=== PATIENT | male | born 1970 | race Caucasian/White ===

== ENCOUNTER 2018-10-24 06:03 | Emergency (ER) | payer BC ==
[2018-10-24] MEDS ORDERED: KETOROLAC 30 MG/ML INJ ONE (06:21)
[2018-10-24] MEDS ORDERED: NA CHLORIDE 0.9% 1,000 ML ONE (06:21)
[2018-10-24 06:35] LABS: Absolute Lymphocytes (CBC) 1.6 K/uL (0.7-4.9); Absolute Monocytes 0.6 K/uL (0.1-1.3); Basophils % 0.4 % (0-1.3); Eosinophils % 3.3 % (0-4.4); Hematocrit 46.1 % (39.6-49.0); Lymphocytes % 24.5 % (15.3-44.8); MPV 8.9 fL (7.6-11.3); Monocytes % 8.9 % (3.3-12.3); RBC Red Blood Cell Count 4.81 M/uL (4.33-5.43)
[2018-10-24 06:36] LABS: Urine Amorphous Sediment 3+ /HPF (NONE SEEN); Urine Bacteria 20-50 /HPF (NONE SEEN); Urine Culture Reflex Order REFLEXED; Urine Mucus 2+ /HPF (NONE SEEN); Urine RBC <5 /HPF (NONE SEEN)
[2018-10-24 06:36] LABS: Urine Blood NEGATIVE (NEG); Urine Glucose NEGATIVE (NEG); Urine Protein TRACE (NEG)
[2018-10-24 06:47] LABS: Albumin 3.8 g/dL (3.4-5.0); Bilirubin Direct 0.1 mg/dL (0-0.2); Bilirubin Total 0.5 mg/dL (0.2-1.0); Potassium 3.7 mmol/L (3.5-5.1); Protein, Total 6.9 g/dL (6.4-8.2)
[2018-10-24] MEDS ORDERED: MORPHINE 4 MG/ML SYR ONE (07:32)
[2018-10-24] MEDS ORDERED: ONDANSETRON 4 MG/2 ML VIAL ONE (07:33)
--- NOTE | 2018-10-24 07:42 | EDPHYS ---
Physician Documentation [facility] Name: Edson Yang Age: 48 yrs Sex: Male : 1970 Arrival Date: 10/24/2018 Time: 06:05 Bed 6 Private MD: ED Physician Tam Abad HPI: 10/24 06:13 This 48 yrs old Male presents to ER via EMS with complaints of Back Pain, Abd gs Pain > 50 y/o. 06:13 The patient complains of pain in the right low back. The pain radiates to the right gs lower quadrant. Onset: The symptoms/episode began/occurred acutely, this morning. Modifying factors: The symptoms are alleviated by nothing. the symptoms are aggravated by nothing. Associated signs and symptoms: Pertinent negatives: diarrhea, fever, pain radiating to the lower extremities. Severity of pain: At its worst the pain was severe in the emergency department the pain is unchanged. The patient has experienced similar episodes in the past, a few times. The patient has not recently seen a physician. Historical: - Allergies: 06:14 No Known Allergies; ea - Home Meds: 06:14 Glipizide Oral [Active]; atorvastatin oral oral [Active]; Metformin Oral [Active]; ea - PMHx: 06:14 Diabetes - IDDM; Kidney stones; ea - PSHx: 06:14 hand surgery; ea - Immunization history:: Adult Immunizations up to date. - Social history:: Smoking status: Patient/guardian denies using tobacco. - Ebola Screening: : No symptoms or risks identified at this time. ROS: 06:13 All other systems are negative. gs Exam: 06:13 Head/Face: Normocephalic, atraumatic. Eyes: Pupils equal round and reactive to light, gs extra-ocular motions intact. Lids and lashes normal. Conjunctiva and sclera are non-icteric and not injected. Cornea within normal limits. Periorbital areas with no swelling, redness, or edema. 06:13 ENT: Nares patent. No nasal discharge, no septal abnormalities noted. Tympanic membranes are normal and external auditory canals are clear. Oropharynx with no redness, swelling, or masses, exudates, or evidence of obstruction, uvula midline. Mucous membranes moist. Neck: Trachea midline, no thyromegaly or masses palpated, and no cervical lymphadenopathy. Supple, full range of motion without nuchal rigidity, or vertebral point tenderness. No Meningismus. Chest/axilla: Normal chest wall appearance and motion. Nontender with no deformity. No lesions are appreciated. Cardiovascular: Regular rate and rhythm with a normal S1 and S2. No gallops, murmurs, or rubs. Normal PMI, no JVD. No pulse deficits. Respiratory: Lungs have equal breath sounds bilaterally, clear to auscultation and percussion. No rales, rhonchi or wheezes noted. No increased work of breathing, no retractions or nasal flaring. Back: No spinal tenderness. No costovertebral tenderness. Full range of motion. Skin: Warm, dry with normal turgor. Normal color with no rashes, no lesions, and no evidence of cellulitis. MS/ Extremity: Pulses equal, no cyanosis. Neurovascular intact. Full, normal range of motion. Neuro: Awake and alert, GCS 15, oriented to person, place, time, and situation. Cranial nerves II-XII grossly intact. Motor strength 5/5 in all extremities. Sensory grossly intact. Cerebellar exam normal. Normal gait. 06:13 Constitutional: The patient appears alert, awake. 06:13 Constitutional: The patient appears uncomfortable. 06:13 Abdomen/GI: Palpation: moderate abdominal tenderness, in the right lower quadrant. Vital Signs: 06:00 BP 123 / 82; Pulse 63; Resp 18; Temp 98.3; Pulse Ox 100% on R/A; Weight 68.04 kg; ea Height 5 ft. 5 in. (165.10 cm); Pain 10/10; 07:37 BP 124 / 64; Pulse 60; Resp 16; Pulse Ox 100% on R/A; Pain 6/10; iw 06:00 Body Mass Index 24.96 (68.04 kg, 165.10 cm) ea MDM: 06:11 Patient medically screened. 06:13 Differential diagnosis: nephrolithiasis, pyelonephritis, UTI, pancreatitis. Data reviewed: vital signs, nurses notes. Response to treatment: the patient's symptoms have markedly improved after treatment. 10/24 06:09 Order name: Basic Metabolic Panel; Complete Time: 07:16 gs 10/24 07:29 Interpretation: Normal except: CL 109; GLUC 118; GFR 79. cp 10/24 06:09 Order name: CBC with Diff; Complete Time: 07:16 gs 10/24 07:29 Interpretation: Normal except: RDW 17.3. cp 10/24 06:09 Order name: Hepatic Function; Complete Time: 07:16 gs 10/24 06:09 Order name: Lipase; Complete Time: 07:16 gs 10/24 06:09 Order name: Urine Microscopic Only; Complete Time: 07:16 gs 10/24 07:30 Interpretation: Normal except: UBACT 20-50; SQEPI 5-10; AMORPH 3+. cp 10/24 06:20 Order name: Urine Dipstick--Ancillary (enter results); Complete Time: 07:16 mw2 10/24 06:09 Order name: IV Saline Lock; Complete Time: 06:19 gs 10/24 06:09 Order name: CT Stone Protocol 10/24 06:38 Order name: Urine Culture EDCT 10/24 06:09 Order name: Labs collected and sent; Complete Time: 06:19 gs 10/24 06:09 Order name: Urine Dipstick-Ancillary (obtain specimen); Complete Time: 06:18 gs Administered Medications: 06:20 Drug: NS 0.9% 1000 ml Route: IV; Rate: 1 bolus; Site: right forearm; rr5 06:20 Drug: TORadol 30 mg Route: IVP; Site: right forearm; rr5 07:31 Drug: morphine 4 mg Route: IVP; Site: right antecubital; iw 07:32 Drug: Zofran 4 mg Route: IVP; Site: right antecubital; iw 08:31 Drug: Flexeril 10 mg Route: PO; iw Disposition: 09:00 Chart complete. cp Disposition: 10/24/18 07:41 Discharged to Home. Impression: Low back pain. - Condition is Stable. - Discharge Instructions: Back Pain, Adult, Back Exercises, [id number]. - Prescriptions for Cipro 500 mg Oral Tablet - take 1 tablet by ORAL route every 12 hours for 7 days; 14 tablet. Cyclobenzaprine 10 mg Oral Tablet - take 1 tablet by ORAL route every 8 hours As needed no driving while taking medication; 20 tablet. Tramadol 50 mg Oral Tablet - take 1 tablet by ORAL route every 8 hours as needed. no driving while taking medication; 15 tablet. Ibuprofen 800 mg Oral Tablet - take 1 tablet by ORAL route every 8 hours As needed take with food; 30 tablet. - Work release form, Medication Reconciliation Form, Thank You Letter, Antibiotic Education, Prescription Opioid Use form. - Follow up: Private Physician; When: 2 - 3 days; Reason: Recheck today's complaints. - Problem is new. - Symptoms have improved. Signatures: Dispatcher [employer] Tonia Castro RN RN Armando Winter PA PA cp Antunez, Elena, RN RN ea Starr, Gregory, MD MD gs Roque, Raymond, RN RN rr5 Corrections: (The following items were deleted from the chart) 08:41 07:41 10/24/2018 07:41 Discharged to Home. Impression: Low back pain. Condition is iw Stable. Forms are Medication Reconciliation Form, Thank You Letter, Antibiotic Education, Prescription Opioid Use. Follow up: Private Physician; When: 2 - 3 days; Reason: Recheck today's complaints. Problem is new. Symptoms have improved. cp
--- NOTE | 2018-10-24 07:42 | ER ---
Nurse's Notes [facility] Name: Edson Yang Age: 48 yrs Sex: Male : 1970 Arrival Date: 10/24/2018 Time: 06:05 Bed 6 Private MD: Diagnosis: Low back pain Presentation: 10/24 06:00 Presenting complaint: Patient states: Pt reports pain to lower back that radiates to ea right abdomen. Pt reports he has a history of kidney stones. Transition of care: patient was not received from another setting of care. Onset of symptoms was October 24, 2018. Risk Assessment: Do you want to hurt yourself or someone else? Patient reports no desire to harm self or others. Initial Sepsis Screen: Does the patient meet any 2 criteria? No. Patient's initial sepsis screen is negative. Does the patient have a suspected source of infection? No. Patient's initial sepsis screen is negative. Care prior to arrival: None. 06:00 Method Of Arrival: EMS: [facility] ea 06:00 Acuity: NIKKI 3 ea Triage Assessment: 06:00 General: Appears uncomfortable, Behavior is calm, cooperative, appropriate for age. ea Pain: Complains of pain in low back area and left low back right flank and right lower quadrant Quality of pain is described as sharp. Neuro: Level of Consciousness is awake, alert, obeys commands, Oriented to person, place, time. Cardiovascular: Patient's skin is warm and dry. Respiratory: Airway is patent Respiratory effort is even, unlabored, Respiratory pattern is regular, symmetrical. Derm: Skin is pink, warm \T\ dry. Musculoskeletal: Circulation, motion, and sensation intact. Historical: - Allergies: 06:14 No Known Allergies; ea - Home Meds: 06:14 Glipizide Oral [Active]; atorvastatin oral oral [Active]; Metformin Oral [Active]; ea - PMHx: 06:14 Diabetes - IDDM; Kidney stones; ea - PSHx: 06:14 hand surgery; ea - Immunization history:: Adult Immunizations up to date. - Social history:: Smoking status: Patient/guardian denies using tobacco. - Ebola Screening: : No symptoms or risks identified at this time. Screenin:12 Abuse screen: Denies threats or abuse. Nutritional screening: No deficits noted. ea Tuberculosis screening: No symptoms or risk factors identified. Fall Risk IV access (20 points). Assessment: 06:00 General: Appears in no apparent distress. uncomfortable, Behavior is calm, cooperative, rr5 appropriate for age. 06:00 Pain: Complains of pain in low back Pain radiates to right lower quadrant and left rr5 lower quadrant Pain currently is 6 out of 10 on a pain scale. Quality of pain is described as sharp, Pain began gradually, Is intermittent. Neuro: Level of Consciousness is awake, alert, obeys commands, Oriented to person, place, time, situation, Appropriate for age. Cardiovascular: Capillary refill < 3 seconds Patient's skin is warm and dry. Respiratory: Airway is patent Respiratory effort is even, unlabored, Respiratory pattern is regular, symmetrical. GI: Reports lower abdominal pain. GI: Reports low back pain. : Reports history of kidney stone having low back and lower quadrant pain. EENT: No signs and/or symptoms were reported regarding the EENT system. Derm: Skin is intact, Skin temperature is warm redness on the face and upper arms noted. Musculoskeletal: Circulation, motion, and sensation intact. Capillary refill < 3 seconds, Range of motion: intact in all extremities. 07:36 Reassessment: Patient appears in no apparent distress at this time. Patient and/or iw family updated on plan of care and expected duration. Pain level reassessed. Patient is alert, oriented x 3, equal unlabored respirations, skin warm/dry/pink. pt states pain 6/10, medicated with morphine and Zofran, VSS, family at bedside, awaiting CT results. Vital Signs: 06:00 BP 123 / 82; Pulse 63; Resp 18; Temp 98.3; Pulse Ox 100% on R/A; Weight 68.04 kg; ea Height 5 ft. 5 in. (165.10 cm); Pain 10/10; 07:37 BP 124 / 64; Pulse 60; Resp 16; Pulse Ox 100% on R/A; Pain 6/10; iw 06:00 Body Mass Index 24.96 (68.04 kg, 165.10 cm) ea ED Course: 06:00 Arm band placed on right wrist. Patient placed in an exam room, on a stretcher, on ea pulse oximetry. 06:00 Patient has correct armband on for positive identification. Bed in low position. Call ea light in reach. Side rails up X 1. 06:05 Patient arrived in ED. ea 06:10 Triage completed. ea 06:11 Tam Abad MD is Attending Physician. gs 06:18 Urine Microscopic Only Sent. jb5 06:18 Basic Metabolic Panel Sent. jb5 06:18 CT Stone Protocol Sent. jb5 06:18 CBC with Diff Sent. jb5 06:18 Hepatic Function Sent. jb5 06:18 Lipase Sent. jb5 06:18 Inserted saline lock: 20 gauge in right forearm, using aseptic technique. Blood rr5 collected. 06:[address] via wheelchair. kw1 06:35 CT Stone Protocol In Process Unspecified. EDMS 06:58 Tonia Maza, RN is Primary Nurse. iw 07:00 Armando Wilson PA is PHCP. cp 08:40 No provider procedures requiring assistance completed. IV discontinued, intact, iw bleeding controlled, No redness/swelling at site. Pressure dressing applied. Administered Medications: 06:20 Drug: NS 0.9% 1000 ml Route: IV; Rate: 1 bolus; Site: right forearm; rr5 06:20 Drug: TORadol 30 mg Route: IVP; Site: right forearm; rr5 07:31 Drug: morphine 4 mg Route: IVP; Site: right antecubital; iw 07:32 Drug: Zofran 4 mg Route: IVP; Site: right antecubital; iw 08:31 Drug: Flexeril 10 mg Route: PO; iw Outcome: 07:41 Discharge ordered by MD. cp 08:40 Discharged to home ambulatory, with family. iw 08:40 Condition: good 08:40 Discharge instructions given to patient, family, Instructed on discharge instructions, follow up and referral plans. medication usage, Demonstrated understanding of instructions, follow-up care, medications, Prescriptions given X 3. 08:41 Patient left the ED. iw Signatures: Dispatcher [employer] EDIA Tonia Maza RN RN iw Armando Wilson PA PA cp Ilana Baig jb5 Beth Samayoa RN RN ea Starr, Gregory, MD MD Ana Paula Ventura kw1 Gary Serrano RN RN rr5 Corrections: (The following items were deleted from the chart) 06:33 06:00 Pain: Complains of pain in low back Pain radiates to right lower quadrant and rr5 left lower quadrant Pain currently is 10 out of 10 on a pain scale. Quality of pain is described as sharp, Pain began gradually, Is intermittent, rr5
[2018-10-24] MEDS ORDERED: CYCLOBENZAPRINE 10 MG TAB ONE (08:36)
--- NOTE | 2018-10-24 15:39 | RAD REPORT ---
EXAM DESCRIPTION: CT Abdomen and Pelvis Without Intravenous Contrast. CLINICAL HISTORY: The patient is 48 years old and is Male; ABD PAIN. COMPARISON: No relevant prior studies available. TECHNIQUE: Axial computed tomography images of the abdomen and pelvis without intravenous contrast. Sagittal and coronal reformatted images were created and reviewed. This CT exam was performed using one or more o f the following dose reduction techniques: Automated exposure control, adjustment of the mA and/or kV according to patient size, and/or use of iterative reconstruction technique. FINDINGS: Lung bases: Unremarkable. No mass. No consolidation. ABDOMEN: Liver: Homogeneous without focal mass. Gallbladder and bile ducts: No calcified stones. No ductal dilation. Pancreas: Unremarkable. No ductal dilation. Spleen: Punctate splenic granuloma is present. Adrenals: Unremarkable. No mass. Kidneys and ureters: Right intrarenal calcifications are present. There is no hydronephrosis or hydro ureter of either kidney. No obstructing calculus is seen. Stomach and bowel: The stomach is massively distended. The small bowel is relatively normal in calibe r. A moderate amount of stool is present throughout the colon. There is minimal mucosal thickening or evidence of bowel obstruction. PELVIS: Appendix: The appendix is normal in caliber without surrounding inflammation. Bladder: Unremarkable. No stone. Reproductive: Unremarkable as visualized. ABDOMEN and PELVIS: Intraperitoneal space: Unremarkable. No free air. No significant fluid collection. Bones/joints: No acute fracture. Soft tissues: The soft tissues are normal. Vasculature: Atherosclerosis of the vasculature is present the vasculature is normal in caliber. No abdominal aortic aneurysm. Lymph nodes: Unremarkable. No enlarged lymph nodes. IMPRESSION: No acute findings on this noncontrasted CT of the abdomen and pelvis to explain the chan ent's symptoms. Electronically signed by: Joyce Palomino MD 10/24/2018 6:38 AM [employer] Due to temporary technical issues with the PACS/Fluency reporting system, reports are being signed by the in house radiologist as a courtesy to ensure prompt reporting. The interpreting radiologist is f artemly responsible for the content of the report.
== END 2018-10-24 08:41 | disposition home or self-care (01) ==
LOC: ER 06:03
DX: M54.5 Low back pain (principal); E11.9 Type 2 diabetes mellitus without complications; Z87.442 Personal history of urinary calculi
CPT/HCPCS: 36415; 74176; 76377; 80048; 80076; 81003; 81015; 83690; 85025; 87086; 87088; 99284; J2405; J7030